=== PATIENT | female | born 1990 | race Hispanic/Latino ===

== ENCOUNTER 2023-09-30 05:42 | Observation (INO) | payer MEDICAID ==
[~2023-09-30] VITALS: Ht 160 cm; Wt 101.2 kg
[2023-09-30 05:45] VITALS: BP 140/78; PULSE 94; RESP 18
[2023-09-30 06:16] LABS: APPEARANCE,URINE CLOUDY (CLEAR); BILIRUBIN,URINE NEGATIVE (NEGATIVE); COLOR,URINE LIGHT-YELLOW (YELLOW); GLUCOSE, URINE (UA) NEGATIVE (NEGATIVE); KETONES,URINE NEGATIVE (NEGATIVE); LEUKOCYTE ESTERASE ,URINE 500 Leu/uL (NEGATIVE); NITRATE,URINE NEGATIVE (NEGATIVE); OCCULT BLOOD,URINE NEGATIVE (NEGATIVE); PROTEIN,URINE NEGATIVE (NEGATIVE); UROBILINOGEN,URINE 0.2 mg/dL (0.2-1.0)
[2023-09-30 06:17] LABS: ADD UA MICROSCOPIC YES
[2023-09-30 06:20] LABS: MUCUS,URINE RARE LPF (None Seen); SQUAMOUS EPITHELIAL CELL,UR MANY /HPF (0-2)
[2023-09-30 06:23] LABS: AMPHET/METH SCREEN,URINE NEGATIVE (NEGATIVE); BARBITURATE SCREEN, URINE NEGATIVE (NEGATIVE); BENZODIAZEPINES SCREEN,URINE NEGATIVE (NEGATIVE); CANNABINOID SCREEN,URINE NEGATIVE (NEGATIVE); COCAINE SCREEN,URINE NEGATIVE (NEGATIVE); OPIATE SCREEN,URINE NEGATIVE (NEGATIVE); PHENCYCLIDINE SCREEN,URINE NEGATIVE (NEGATIVE)
[2023-09-30] MEDS: PROMETHAZINE HCL 25 MG/ML 1ML AMPULE IM ONE (07:10)
[2023-09-30] MEDS: ACETAMINOPHEN WITH CODEINE 1 TAB TAB PO PRN (07:10)
== END 2023-09-30 08:07 | disposition home or self-care (01) ==
LOC: EDH 05:42 → EDBD 05:42 → LDH 05:43
PROVIDERS: ADMIT Obstetrics & Gynecology; ATTEND Obstetrics & Gynecology
DX: O26.892 Other specified pregnancy related conditions, second trimester (principal); R53.1 Weakness; R10.2 Pelvic and perineal pain; R06.02 Shortness of breath; R51.9 Headache, unspecified; O21.2 Late vomiting of pregnancy; Z3A.27 27 weeks gestation of pregnancy
CPT/HCPCS: 96372; 80305; 87086; 81001; G0378 ×2; G0379; J2550

== ENCOUNTER 2023-11-27 05:38 | Observation (INO) | payer MEDICAID ==
[~2023-11-27] VITALS: Ht 160 cm; Wt 90.7 kg
--- NOTE | 2023-11-27 06:35 | EKG ---
[facility] Test Date: 2023-11-27 Test Time: 06:31:45 Pat Name: NORA HEARN Department: [facility] Room: [facility] Gender: F Mock Up Maker: [id number] 1990 Requested By: HUSAM GREEN Order Number: [id number] Reading MD: Corey Phillips Measurements Intervals Anderson Rate: 109 P: -5 [place]: 127 QRS: 13 QRSD: 83 T: -12 QT: 321 QTc: 434 Interpretive Statements Sinus tachycardia No previous ECG available for comparison Electronically Signed On 11-27-2023 10:46:24 CDT by Corey Phillips Please click the below link to view image of tracing.
[2023-11-27] MEDS: MAG/ALUM/SIMETH 30 ML UDCUP PO ONE (06:51)
--- NOTE | 2023-11-27 06:55 | NUR ---
PATIENT OBTAINING A URINE SAMPLE.
--- NOTE | 2023-11-27 06:57 | ERN ---
General Chief Complaint: OB>20 weeks gest. Stated Complaint: ABD PAIN, CHEST PAIN Time Seen by MD: 05:42 Source: patient History of Present Illness Initial Comments PATIENT IS A 33-YEAR-OLD FEMALE COMING IN TO BE EVALUATED FOR ABDOMINAL DISCOMFORT EPIGASTRIC DISCOMFORT AND CHEST PRESSURE. PATIENT STATES HE IS 34 WEEKS BY DATE . SYMPTOMS HAVE BEGAN FOR A COUPLE OF DAYS. Allergies: Coded Allergies: No Known Drug Allergies (Unverified Allergy, Unknown, 09/30/23) Past Medical History Past Medical History: Asthma, Other Medical History Other: GALLSTONES Past Surgical History: None Female( History) : 4 Para: 3 Aborts: 0 ROS Dictation CONSTITUTIONAL: NO CHILLS, NO FEVER, NO WEAKNESS, NO DIAPHORESIS, NO MALAISE. HEAD/FACE: NO SIGNS OF TRAUMA. EENT: NO EYE PAIN, NO BLURRED VISION, NO TEARING, NO DOUBLE VISION, NO EAR PAIN, NO EAR DISCHARGE, NO NOSE PAIN, NO NASAL CONGESTION, NO THROAT PAIN, NO THROAT SWELLING, NO MOUTH PAIN. RESPIRATORY: NO COUGH, NO ORTHOPNEA, NO SOB, NO STRIDOR, NO WHEEZING. CARDIOVASCULAR: NO CHEST PAIN, NO EDEMA, NO PALPITATIONS, NO SYNCOPE. GASTROINTESTINAL/ABDOMINAL: NO ABDOMINAL PAIN, NO CONSTIPATION, NO DIARRHEA, NO NAUSEA, NO VOMITING. GENITOURINARY: NO ABNORMAL DISCHARGE, NO DYSURIA, NO FREQUENT URINATION, NO HEMATURIA. NO COMPLAINTS OF PAIN IN THE GENITALS. MUSCULOSKELETAL: NO BACK PAIN, NO GOUT, NO JOINT PAIN, NO JOINT SWELLING, NO MUSCLE PAIN, NO MUSCLE STIFFNESS, NO NECK PAIN. INTEGUMENTARY: NO CHANGE IN COLOR, NO CHANGE IN HAIR/NAILS, NO DRYNESS, NO LESION, NO LUMPS, NO RASH. NEUROLOGICAL/PSYCH: NO ANXIETY, NOT DEPRESSED, NO EMOTIONAL PROBLEM, NO HEADACHE, NO NUMBNESS, NO PRE-EXISTING DEFICIT, NO HISTORY OF SEIZURES, NO TREMORS, NO WEAKNESS. HEMATOLOGIC/LYMPHATIC: NOT ANEMIC, NO HISTORY OF BLOOD CLOTS, NO APPARENT BLEEDING, NO BRUISING, GLANDS NOT SWOLLEN. ALL SYSTEMS NEGATIVE, EXCEPT NOTED. Physical Exam Physical Exam Dictation VITAL SIGNS: REVIEWED. GENERAL APPEARANCE: ALERT, ORIENTED X3, NO ACUTE DISTRESS, OBESE. HEAD AND FACE: NON-TRAUMATIC. EYES: PERRL, PINK CONJUNCTIVAS, EYELID NO TRAUMA, ANTERIOR CHAMBER CLEAR. EARS: PINNAS INTACT AND NO SIGNS OF TRAUMA OR ERYTHEMA. EAR CANALS CLEAR AND NO DISCHARGE. TMS NO ERYTHEMA. NOSE: NO DISCHARGE, NO BLEEDING. OROPHARYNX: MOUTH NORMAL, TEETH NO CARIES, TONGUE PINK. PHARYNX CLEAR, NO ERYTHEMA. TONSILS NO EXUDATES, NO ABSCESSES NOTED. MUCOUS MEMBRANE MOIST. NECK: SUPPLE, NON-TENDER, NO THYROMEGALY, NO MASSES, NO JVD, NO BRUITS. BREAST: DEFERRED. CHEST: NO TENDERNESS, NO CREPITUS, NO PARADOXICAL MOVEMENT, NO RETRACTIONS. LUNGS: CLEAR, WELL-VENTILATED, SYMMETRIC, NO RALES, NO WHEEZING, NO RHONCHI, NO STRIDOR, GOOD BREATH SOUNDS BILATERALLY. HEART: REGULAR RATE, REGULAR RHYTHM, NO MURMUR, NO GALLOPS. VASCULAR: NO PERIPHERAL EDEMA. ABDOMEN: SOFT, POSITIVE BOWEL SOUNDS, NONDISTENDED, NO GUARDING, NONTENDER, NO REBOUND, NO MASSES NO HEPATOMEGALY, NO SPLENOMEGALY, NO MESSINA'S SIGN, NO HERNIAS. RECTAL: DEFERRED. GENITAL: DEFERRED. NEUROLOGICAL: NORMAL SPEECH, GROSS MOTOR FUNCTION INTACT, GROSS SENSORY FUNCTION INTACT. MUSCULOSKELETAL: NECK NONTENDER, FULL RANGE OF MOTION, BACK NONTENDER, FULL RANGE OF MOTION. EXTREMITIES: NONTENDER, FULL RANGE OF MOTION. SKIN: COLOR PINK, DRY, NO TURGOR, NO RASH, NO LACERATIONS, NO ABRASIONS, NO CONTUSIONS. LYMPHATICS: DEFERRED. Results Laboratory and Microbiology Lab and Micro Result Laboratory Tests Test 11/27/23 07:04 11/27/23 07:29 Urine Color YELLOW (YELLOW) Urine Appearance CLOUDY (CLEAR) H Urine pH 6.0 (5.0-8.0) Urine Specific Chauncey 1.027 (1.001-1.031) Urine Protein 30 mg/dL (NEGATIVE) H Urine Glucose (UA) NEGATIVE mg/dL (NEGATIVE) Urine Ketones >=80 mg/dL (NEGATIVE) Urine Occult Blood NEGATIVE (NEGATIVE) Urine Nitrate NEGATIVE (NEGATIVE) Urine Bilirubin NEGATIVE mg/dL (NEGATIVE) Urine Urobilinogen 0.2 mg/dL (0.2-1.0) Urine Leukocyte Esterase 500 Caroline/uL (NEGATIVE) H Urine RBC 2-5 /HPF (0-1) H Urine WBC 51-100 /HPF (0-1) H Urine Squamous Epithelial Cells MOD /HPF (0-2) Urine Bacteria None /HPF (None Seen) White Blood Count 9.7 K/uL (4.8-10.8) Red Blood Count 3.25 MIL/uL (4.00-5.50) L Hemoglobin 9.0 g/dL (12.0-16.0) L Hematocrit 28.1 % (36-48) L Mean Corpuscular Volume 86.5 fL (79-99) Mean Corpuscular Hemoglobin 27.7 pg (27.0-33.0) Mean Corpuscular Hemoglobin Concent 32.0 g/dL (32.0-36.0) Red Cell Distribution Width 15.0 % (11.0-15.5) Platelet Count 219 K/uL (130-400) Mean Platelet Volume 12.0 fL (7.5-10.5) H Immature Granulocyte % (Auto) 1.5 % (0-1) H Neutrophils (%) (Auto) 84.8 % (40.0-77.0) H Lymphocytes (%) (Auto) 7.6 % (21.0-51.0) L Monocytes (%) (Auto) 5.4 % (3.0-13.0) Eosinophils (%) (Auto) 0.4 % (0.0-8.0) Basophils (%) (Auto) 0.3 % (0.0-5.0) Neutrophils # (Auto) 8.2 K/uL (1.8-7.7) H Lymphocytes # (Auto) 0.7 K/uL (1.0-4.8) L Monocytes # (Auto) 0.5 K/uL (0.1-1.0) Eosinophils # (Auto) 0.04 K/uL (0.00-0.70) Basophils # (Auto) 0.03 K/uL (0.00-0.20) Absolute Immature Granulocyte (auto 0.15 K/uL (0-1) Nucleated Red Blood Cells 0.0 % (0.0-0.19) Sodium Level 134 mmol/L (136-145) L Potassium Level 3.9 mmol/L (3.5-5.1) Chloride Level 100 mmol/L (101-111) L Carbon Dioxide Level 22 mmol/L (21-32) Blood Urea Nitrogen 7 mg/dL (7-18) Creatinine 0.7 mg/dL (0.5-1.0) Glomerular Filtration Rate Calc 118 mL/min (>90) Random Glucose 105 mg/dL (70-105) Total Calcium 9.2 mg/dL (8.5-10.1) Total Bilirubin 0.6 mg/dL (0.2-1.0) Aspartate Amino Transf (AST/SGOT) 47 U/L (10-37) H Alanine Aminotransferase (ALT/SGPT) 46 U/L (12-78) Alkaline Phosphatase 141 U/L (50-136) H Total Protein 7.1 g/dL (6.0-8.3) Albumin 2.2 g/dL (3.5-5.0) L Labs Reviewed?: Yes EKG/XRAY/US/CT/MRI EKG Comment 11/27/2023 TIME 6:31 A.M. VENTRICULAR RATE [address] WAVE ELEVATION OR DEPRESSION MDM MDM: Differential diagnosis: Cholecystitis, gastritis, biliary colic, UTI, constipation Rationale: Tests considered and ordered secondary to shared decision making include: Previous outside records reviewed: Old ER visits. Risk of complication and/or morbidity or mortality of patient management: None Medications-Per medication reconciliation Need for hospitalization: Patient does not meet criteria for hospitalization. Need for emergency major/minor surgery: No There are no social concerns with this patient. Prescription drug management Prescriptions will include symptomatic care Patient's prior external medical records from other ER visits were reviewed by me as indicated. Prior testing and results from previous visits were reviewed. Prior tests were taken into account with medical decision making and resource utilization, independent historian/historians were used to obtain complete medical history. I independently interpreted the test that were performed, results were reviewed by me and considered findings on radiology if ordered. Medical management and examination interpretation discussions were had by me with other qualified healthcare professionals as indicated for the patient's care. ED Course Orders Procedure Category Date Status Time Cbc With Differential LAB 11/27/23 In Process 05:42 12 Lead Ekg Tracing- EKG 11/27/23 Complete Technical 05:42 Urinalysis Profile LAB 11/27/23 Complete 05:42 Comprehensive LAB 11/27/23 Complete Metabolic Panel 05:42 Troponin I High LAB 11/27/23 In Process Sensitivity 05:42 Mag/Alum/Simeth 30ml PHA 11/27/23 Complete (Maalox Plus 30ml) 06:00 Culture Urine JOCELYN 11/27/23 In Process 07:18 Current Medications Medications (Trade) Dose Ordered Sig/Woody Route PRN Reason Start Time Stop Time Status Last Admin Dose Admin Al Hydroxide/Mg Hydroxide (MAALox PLUS 30ML) 30 ml ONCE ONCE PO 11/27/23 06:00 11/27/23 06:01 DC 11/27/23 06:51 Vital Signs Date Time Temp Pulse Resp B/P (MAP) Pulse Ox O2 Delivery O2 Flow Rate FiO2 11/27/23 05:39 98.1 113 20 117/58 97 Room Air 7:05 a.m. patient was signed out to me by overnight physician that she was in the ER 33 years old 34 weeks with complaints of diffuse abdominal pain. No history of any nausea vomiting diarrhea. She did report some chills and fever for which she took Tylenol she also reported dark urine. No hematemesis or melena. Reports good movements and no vaginal bleeding or spotting. 7:40 a.m..-I re-evaluated the patient remains very comfortable. I reviewed the labs CBC showed a hemoglobin of 9 and hematocrit of 28, urinalysis was abnormal with 51-100 WBCs. CBC and troponins are pending at this time 7:58 a.m. CMP troponins still pending 8:20 a.m. sodium 134 LFTs mildly abnormal no bilirubinemia. She is medically cleared from our standpoint with antibiotic treatment for a UTI. DX & DISP Disposition: Discharge Departure Impression: Primary Impression: with 34 completed weeks gestation Additional Impressions: UTI (urinary tract infection), Anemia affecting Condition: Stable Scripts Nitrofurantoin Macrocrystal (Nitrofurantoin) 50 Mg Capsule 50 MG PO BID for 7 Days, #14 CAP Prov: BELLA HENDERSON MD 11/27/23 Additional Instructions: Patient and the caregiver have been informed of all the diagnostic tests and the imaging conducted during the today's visit to the emergency room and has verbalized understanding of the results I have personally reviewed and interpreted all diagnostic exams performed here in the ER today as well as the vital signs documented by the nursing staff. The patient is now being discharged to home and should follow up with the primary care physician or the specialist as directed by the ER staff. Follow-up with primary care provider in 1 to 2 days. Take medications as directed here in the emergency room. Okay to continue home medications unless otherwise discussed during your visit in the emergency room today. Return to your nearest emergency room if symptoms worsen or if there is no improvement. Call 911 if you need immediate assistance. Take Tylenol or Motrin [id number] as needed and if no contraindications are present. Increase o ral hydration. A wound culture or urine culture was ordered here in the emergency room department please follow-up with primary care provider and advise them to get repeat ports from our facility. If you had any Kane wrap/splints that were applied here, please do not remove them until you see your primary care or specialty. Patient is medically clear to go to [facility] Referrals: YASIR BAÑUELOS (PCP) HUSAM GREEN MD Nov 27, 2023 06:57 BELLA HENDERSON MD Nov 27, 2023 08:34
--- NOTE | 2023-11-27 07:05 | NUR ---
REPORT ENDORSED TO ME BY DOMINGA SAINZ
[2023-11-27 07:12] LABS: APPEARANCE,URINE CLOUDY (CLEAR); BILIRUBIN,URINE NEGATIVE (NEGATIVE); COLOR,URINE YELLOW (YELLOW); GLUCOSE, URINE (UA) NEGATIVE (NEGATIVE); KETONES,URINE >=80 mg/dL (NEGATIVE); LEUKOCYTE ESTERASE ,URINE 500 Leu/uL (NEGATIVE); NITRATE,URINE NEGATIVE (NEGATIVE); OCCULT BLOOD,URINE NEGATIVE (NEGATIVE); PROTEIN,URINE 30 mg/dL (NEGATIVE); UROBILINOGEN,URINE 0.2 mg/dL (0.2-1.0)
[2023-11-27 07:18] LABS: ADD UA MICROSCOPIC YES
[2023-11-27 07:21] LABS: MUCUS,URINE RARE LPF (None Seen); SQUAMOUS EPITHELIAL CELL,UR MOD /HPF (0-2); WBC,URINE 51-100 /HPF (0-1)
[2023-11-27 07:37] LABS: BASOPHILS # (AUTO) 0.03 K/uL (0.00-0.20); BASOPHILS % (AUTO) 0.3 % (0.0-5.0); EOSINOPHILS # (AUTO) 0.04 K/uL (0.00-0.70); EOSINOPHILS % (AUTO) 0.4 % (0.0-8.0); HEMATOCRIT 28.1 % (36-48); IMMATURE GRANULOCYTE ABSOLUTE 0.15 K/uL (0-1); LYMPHOCYTES # (AUTO) 0.7 K/uL (1.0-4.8); LYMPHOCYTES % (AUTO) 7.6 % (21.0-51.0); MEAN CORPUSCULAR HEMOGLOBIN 27.7 pg (27.0-33.0); MEAN CORPUSCULAR VOLUME 86.5 fL (79-99); MONOCYTES # (AUTO) 0.5 K/uL (0.1-1.0); MONOCYTES % (AUTO) 5.4 % (3.0-13.0); NEUTROPHILS # (AUTO) 8.2 K/uL (1.8-7.7); NEUTROPHILS % (AUTO) 84.8 % (40.0-77.0); PLATELET COUNT (AUTO) 219 K/uL (130-400); RED BLOOD CELL COUNT(AUTO) 3.25 MIL/uL (4.00-5.50); WHITE BLOOD COUNT (AUTO) 9.7 K/uL (4.8-10.8)
[2023-11-27 08:15] LABS: ALBUMIN 2.2 g/dL (3.5-5.0); BILIRUBIN,TOTAL 0.6 mg/dL (0.2-1.0); CREATININE 0.7 mg/dL (0.5-1.0); POTASSIUM 3.9 mmol/L (3.5-5.1); TOTAL PROTEIN, SERUM 7.1 g/dL (6.0-8.3)
[2023-11-27] MEDS ORDERED: NITR50CA PO (08:33)
[2023-11-27 08:52] VITALS: BP 111/61; PULSE 103; RESP 18; TEMP 98; O2SAT 98
[2023-11-27] MEDS ORDERED: SIMETHICONE 80 MG TAB.CHEW ONE (09:45)
[2023-11-27] MEDS: LACTATED RINGERS 1000ML 1,000 ML IV SCH (09:55)
[2023-11-27] MEDS: BisaCODYL 10 MG SUPP.RECT RC ONE (10:23)
== END 2023-11-27 12:50 | disposition home or self-care (01) ==
LOC: EDH 05:38 → LDH 05:39
PROVIDERS: ADMIT Obstetrics & Gynecology; ATTEND Obstetrics & Gynecology
DX: O23.43 Unspecified infection of urinary tract in pregnancy, third trimester (principal); O99.513 Diseases of the respiratory system complicating pregnancy, third trimester; J45.909 Unspecified asthma, uncomplicated; O99.013 Anemia complicating pregnancy, third trimester; D64.9 Anemia, unspecified; Z3A.34 34 weeks gestation of pregnancy; Z79.899 Other long term (current) drug therapy
CPT/HCPCS: 96360; 96361; 99284; 84484; 80053; 85025; 87086; 81001; 36415; 93005; G0378 ×7; J7120